=== PATIENT | male | born 1950 | race Caucasian/White ===

== ENCOUNTER → 2019-10-01 | Day surgery (SDC) | payer MEDICARE ==
[~2019-10-01] MED LIST: ARIP10TA9 PO; ASPI-630 PO; ATOR40TA59 PO; BUPR300T4 PO; FINA5TAB4 PO; IV RINGERS,LACTATED 1000ML 1,000 ML IV SCH; LIDOCAINE 1% PF 2 ML VIAL. ID PRN; LISI-338 PO; MIDAZOLAM HCL/PF 2 MG/2 ML VIAL. IV PRN; MIDAZOLAM HCL/PF 5 MG/5 ML VIAL. IV ONE; MIDAZOLAM HCL/PF 5 MG/5 ML VIAL. ONE; TAMS0.4C97 PO; TEMA15CA PO; TRAZ-86 PO; WARF2.5T71 PO; fentaNYL PF VIAL 100 MCG/2 ML VIAL IV ONE; fentaNYL PF VIAL 100 MCG/2 ML VIAL IV PRN; fentaNYL PF VIAL 100 MCG/2 ML VIAL IVP ONE; fentaNYL PF VIAL 100 MCG/2 ML VIAL ONE
[2019-10-01 17:03] VITALS: BP 94/59
== END ==
LOC: EDBD → SURG 14:50
PROVIDERS: ATTEND Internal Medicine Gastroenterology
DX: K59.00 Constipation, unspecified (principal); K64.0 First degree hemorrhoids; F41.9 Anxiety disorder, unspecified; F32.9 Major depressive disorder, single episode, unspecified; F15.90 Other stimulant use, unspecified, uncomplicated; Z86.010 Personal history of colon polyps; Z88.0 Allergy status to penicillin
CPT/HCPCS: 45378; 99152; J2250; J3010